=== PATIENT | female | born 1935 | race Caucasian/White ===

== ENCOUNTER 2017-07-27 15:57 | Outpatient (CLI) | payer MEDICARE, OTHER | END 2017-07-27 15:58 | disposition home or self-care (01) | LOC: BICRAD 15:57 | PROVIDERS: ATTEND Family Medicine | DX: M25.552 Pain in left hip (principal); E78.5 Hyperlipidemia, unspecified; I10 Essential (primary) hypertension; R73.01 Impaired fasting glucose | CPT/HCPCS: 36415; 80053; 80061; 81001; 84443; 85025 ==

== ENCOUNTER 2017-09-26 08:59 | Outpatient (CLI) | payer MEDICARE ==
--- NOTE | 2017-09-26 14:07 | MRI ---
NONCONTRAST MRI BRAIN: Date: 09-26-17 History: Frequent memory impairment. FINDINGS: A few scattered punctate foci of increased T2 weighted signal intensity are seen in the periventricul ar white matter which are nonspecific and of uncertain etiology but may be reflective of mild chronic small vessel ischemic changes. There is no evidence of an acute infarction. The septum pellucidum an d third ventricle are on the midline. There is diffuse cerebral and cerebellar volume loss. The ventricular system is normal in size, shape , and position for the degree of sulcal atrophy. Appropriate flow voids are demonstrated at the base of the brain. [place] lenses are not visualized. Minimal mucosal thickening is seen in a few ethmoidal air cells. IMPRESSION: 1. No acute intracranial abnormality is demonstrated. 2. Findings which may reflect very mild chronic small vessel ischemic changes. 3. Cerebral and cerebellar volume loss. POS: [facility]
== END 2017-09-26 09:00 | disposition home or self-care (01) ==
LOC: EEG 08:59
PROVIDERS: ATTEND Student in an Organized Health Care Education/Training Program
DX: R41.3 Other amnesia (principal); G31.89 Other specified degenerative diseases of nervous system
CPT/HCPCS: 70551; 95816

== ENCOUNTER 2018-05-06 21:50 | Emergency (ER) | payer MEDICARE ==
--- NOTE | 2018-05-06 22:22 | RAD ---
AP VIEW CHEST: AP AND OBLIQUE VIEWS LEFT RIBS: HISTORY: The patient was moving a tree limb, which fell on his left side, with upper rib pain. FINDINGS: PA radiograph of the chest demonstrates a large hiatal hernia. No other acute intrathoracic abnormal ities seen. No evidence of effusions, pneumonia, or pneumothorax is seen. AP and oblique views of the left ribs demonstrate no definite evidence of left rib fractures or abnor malities seen. IMPRESSION: 1. Hiatal hernia. 2. No evidence of acute intrathoracic abnormality seen. POS: [facility]
--- NOTE | 2018-05-06 23:42 | RAD ---
LEFT SHOULDER THREE VIEWS: HISTORY: Left shoulder pain. TECHNIQUE: AP internal, external, and scapular Y views of the left shoulder are obtained. FINDINGS: No evidence of left shoulder fractures, subluxations, or bony lesions seen. IMPRESSION: Normal three views left shoulder. POS: [facility]
== END 2018-05-06 23:45 | disposition home or self-care (01) ==
LOC: ERS 21:50
DX: S40.012A Contusion of left shoulder, initial encounter (principal); S20.212A Contusion of left front wall of thorax, initial encounter; E78.5 Hyperlipidemia, unspecified; I10 Essential (primary) hypertension; W01.0XXA Fall on same level from slipping, tripping and stumbling without subsequent striking against object, initial encounter

== ENCOUNTER 2018-05-16 10:13 | Outpatient (CLI) | payer MEDICARE | END 2018-05-16 10:14 | disposition home or self-care (01) | LOC: BICRAD 10:13 | PROVIDERS: ATTEND Family Medicine | DX: R07.89 Other chest pain (principal) ==